=== PATIENT | female | born 1935 | race Caucasian/White ===

== ENCOUNTER → 2017-03-09 | Outpatient (CLI) | payer MEDICARE ==
[~2017-03-09] MED LIST: LEVO100T5 PO
[2017-03-09 09:54] LABS: EPI LOT# 5695218
[2017-03-09 09:56] LABS: PATH.CAST-FLAG NOT PRESENT; SPERM-FLAG NOT PRESENT; SRC-FLAG NOT PRESENT; XTAL-FLAG NOT PRESENT; YLC-FLAG NOT PRESENT
[2017-03-09 10:15] LABS: BLOOD UREA NITROGEN 19 mg/dL (7-18)
[2017-03-09 10:43] LABS: PLATELET (PFA) 201 x10^3/uL (130-400)
[2017-03-09 10:54] LABS: EPI CARTRIDGE 103 SECONDS (72-193)
== END | disposition home or self-care (01) ==
LOC: STAR 08:42
PROVIDERS: ATTEND Neurological Surgery
DX: Z01.818 Encounter for other preprocedural examination (principal); M54.16 Radiculopathy, lumbar region; R79.1 Abnormal coagulation profile
CPT/HCPCS: 36415; 71020; 80048; 81001; 85014; 85025; 85049; 85576; 85610; 85730; 87086; 93005

== ENCOUNTER 2017-03-19 06:25 | Day surgery (SDC) | payer MEDICARE ==
[~2017-03-19] VITALS: Ht 165.1 cm; Wt 63.0 kg
[2017-03-19] MEDS ORDERED: LACTATED RINGERS 1,000 ML IV SCH (07:33)
[2017-03-19 07:34] VITALS: BP 109/72
[2017-03-19] MEDS ORDERED: LIDOCAINE 1%, 2ML SQ PRN (08:00)
[2017-03-19] MEDS ORDERED: FENTANYL PF 250 MCG/5ML ONE (08:55)
[2017-03-19] MEDS ORDERED: OXYcodone 5 MG/5 ML ORAL.SOL UDC PO PRN (09:00)
[2017-03-19] MEDS ORDERED: METOCLOPRAMIDE 5 MG/ML, 2ML IV PRN (09:00)
[2017-03-19] MEDS ORDERED: hydrALAzine 20 MG/ML, 1ML IV PRN (09:00)
[2017-03-19] MEDS ORDERED: MEPERIDINE/PF 25MG/0.5ML IVPush PRN (09:00)
[2017-03-19] MEDS ORDERED: ACETAMINOPHEN 325 MG TABLET PO PRN (09:00)
[2017-03-19] MEDS ORDERED: MIDAZOLAM 1 MG/ML, 2ML IV PRN (09:00)
[2017-03-19] MEDS ORDERED: ONDANSETRON 2MG/ML, 2ML IVPush PRN (09:00)
[2017-03-19] MEDS ORDERED: HYDROmorphone 1 MG/ML, 1ML IV PRN (09:00)
[2017-03-19] MEDS ORDERED: PROMETHAZINE 25 MG/ML, 1ML IV PRN (09:00)
[2017-03-19] MEDS ORDERED: LABETALOL 5MG/ML, 20ML IV PRN (09:00)
[2017-03-19] MEDS ORDERED: MIDAZOLAM 1 MG/ML, 2ML ONE (09:29)
[2017-03-19] MEDS ORDERED: BUPIVACAINE/PF 0.5% INFIL ONE (10:20)
[2017-03-19] MEDS ORDERED: EPINEPHRINE 1 MG/ML, 1ML INFIL ONE (10:21)
[2017-03-19] MEDS ORDERED: THROMBIN 5,000 UNIT VIAL TP ONE (10:22)
[2017-03-19] MEDS ORDERED: BACITRACIN 50,000 UNIT IRRIG ONE (10:22)
[2017-03-19] MEDS ORDERED: ACETAMINOPHEN 650 MG/20.3 ML UDC ONE (11:32)
[2017-03-19] MEDS ORDERED: ACETAMINOPHEN 325 MG TABLET ONE (11:32)
[2017-03-19] MEDS ORDERED: OXYcodone 5 MG/5 ML ORAL.SOL UDC ONE (11:33)
[2017-03-19] MEDS ORDERED: FENTANYL PF 100 MCG/2ML ONE (11:33)
[2017-03-19] MEDS: FENTANYL PF 100 MCG/2ML IV PRN ×3 (11:40→12:10)
[2017-03-19] MEDS ORDERED: ONDANSETRON 2MG/ML, 2ML ONE ×2 (12:36→16:57)
[2017-03-19] MEDS ORDERED: PROMETHAZINE 12.5 MG SUPP PR ONE (13:30)
[2017-03-19] MEDS ORDERED: SCOPOLAMINE PATCH, 1.5MG PATCH.TD72 TD ONE (13:30)
[2017-03-19] MEDS ORDERED: PROPOFOL 10 MG/ML, 20ML ONE (16:57)
[2017-03-19] MEDS ORDERED: DEXAMETHASONE 4 MG/ML, 1ML ONE (16:57)
[2017-03-19] MEDS ORDERED: ROCURONIUM 10 MG/ML ONE (16:57)
[2017-03-19] MEDS ORDERED: SUCCINYLCHOLINE 20 MG/ML, 10ML ONE (16:57)
[2017-03-19] MEDS ORDERED: ONDANSETRON ODT 4 MG PO PRN (17:00)
== END 2017-03-19 17:50 | disposition home or self-care (01) ==
LOC: OUT 06:25
PROVIDERS: ATTEND Neurological Surgery
DX: M54.17 Radiculopathy, lumbosacral region (principal); M71.38 Other bursal cyst, other site; Z88.0 Allergy status to penicillin; Z88.2 Allergy status to sulfonamides; K21.9 Gastro-esophageal reflux disease without esophagitis; E03.9 Hypothyroidism, unspecified; Z98.890 Other specified postprocedural states; Z82.49 Family history of ischemic heart disease and other diseases of the circulatory system
CPT/HCPCS: 63030; 72100; J0171; J0330; J1100; J2250; J2405; J2704; J3010; J3490; J7120